=== PATIENT | male | born 1950 | race Caucasian/White ===

== ENCOUNTER 2016-08-08 04:23 | Day surgery (SDC) | payer MEDICARE ==
[2016-08-02 15:55] LABS: HEMATOCRIT 39.1 % (40.0-51.0); HEMOGLOBIN 12.8 g/dL (13.6-17.8)
[2016-08-02 20:35] LABS: BUN (BLOOD UREA NITROGEN) 10 MG/DL (6-23); CALCIUM, SERUM 8.6 MG/DL (8.5-10.4); CHLORIDE, SERUM 105 MMOL/L (96-112); CO2 (CARBON DIOXIDE) 25 MMOL/L (24-34); CREATININE 0.82 MG/DL (0.70-1.30); GFR AFRICAN AMERICAN 106 ML/MIN (>=60); GFR NON AFRICAN AMERICAN 92 ML/MIN (>=60); GLUCOSE, SERUM 89 MG/DL (60-99); POTASSIUM, SERUM 4.1 MMOL/L (3.5-5.3); SODIUM, SERUM 141 MMOL/L (135-148)
--- NOTE | ~2016-08-08 | OP ---
[facility] [address] [place]. [address] NAME: KORI BRUNO NEL : 46 STATUS : [facility]#: [id number] AGE: 65 ADM/REG DATE : 08/08/16 MR#: [id number] REPORT SERV DATE: 08/12/16 DICTATED BY: NOE BUCKLEY II DATE: 08/08/16 REPORT STATUS : Draft TRANSCRIBED BY: MODL DATE: 08/08/16 DATE OF PROCEDURE: 08/08/2016 PREOPERATIVE DIAGNOSES: 1. Lumbar degenerative scoliosis. 2. Low back pain with radiculitis of lower extremities. POSTOPERATIVE DIAGNOSES: 1. Lumbar degenerative scoliosis. 2. Low back pain with radiculitis of lower extremities. PROCEDURES: 1. Placement of percutaneous spinal column stimulator leads x2. 2. Placement of battery generator, spinal column stimulator. SURGEON: Noe Buckley M.D. FLUIDS REPLACED: 1300 mL LR. ESTIMATED BLOOD LOSS: 10 mL. DRAINS: None. COMPLICATIONS: None. ANTIBIOTICS: Preoperatively. IMPLANTS: [employer] spinal column stimulator system. PREOPERATIVE HISTORY: A very friendly 65-year-old gentleman, who has a significant lumbar degeneration and radiculitis. He is not a very good surgical candidate for a large thoracolumbar surgery, he ultimately was sent to pain management. Dr. Velez performed a very successful trial column stimulator. He was then evaluated by us for direct implantation and he wished to proceed. DESCRIPTION OF PROCEDURE: After informed consent was obtained, the patient was brought to the operating room at his request and general anesthesia achieved. He was placed in the prone position, and the back was prepped and draped in a sterile fashion. The paramedian incision was made at the thoracolumbar junction. The fascia was incised and the 17-gauge needle placed into the epidural space at T12-L1 using the loss of resistance technique. The electrode was then placed into the dorsal epidural space and placed to overlie the T8 and T9 vertebral bodies on fluoroscopy. A second lead was then placed in a similar manner using a second needle. Next, the leads were then suture anchored to the fascia. The battery pocket was then developed on the left. This was a subcutaneous pocket development. The battery was then Record [facility] [address] [place] [place]. [address] NAME: KORI BRUNO : 46 STATUS : [facility] PAT#: [id number] AGE: 65 ADM/REG DATE : 08/08/16 MR#: [id number] REPORT SERV DATE: 08/12/16 DICTATED BY: NOE BUCKLEY II DATE: 08/08/16 REPORT STATUS : Draft TRANSCRIBED BY: HARSHAD DATE: 08/08/16 attached to the soft tissue. The system was found to be functional. Irrigation was performed followed by standard closure. The patient was then extubated and transferred to PACU in stable condition. I went to the waiting room to see his family member/friend and she was not available. I then called her cell phone, and it went to voicemail and there was not a voicemail box setup. I then discussed later in the morning with the phase 2 recovery nurse that the patient was stable and comfortable and he was discharged home in a satisfactory condition. JARROD/HARSHAD Noe Buckley II, M.D. / [id number] CC: Franck Oakes II, PA John Everett Blake III, M.D.
[~2016-08-08 04:23] MED LIST: ANOROELLIPTA INH; EFFEXOR XR150 MG PO; MSCONTIN PO; PRIN20 PO; VENTOLIN HFA INH
== END 2016-08-08 11:02 | disposition home or self-care (01) ==
LOC: SDC 04:23
PROVIDERS: Orthopaedic Surgery
PROC: 01HY3MZ Insertion of Neurostimulator Lead into Peripheral Nerve, Percutaneous Approach (ICD-10-PCS; 2016-08-08)
PROC: 0JH70BZ Insertion of Single Array Stimulator Generator into Back Subcutaneous Tissue and Fascia, Open Approach (ICD-10-PCS; principal; 2016-08-08 05:45)
DX: Z45.49 Encounter for adjustment and management of other implanted nervous system device (principal); M41.9 Scoliosis, unspecified; I10 Essential (primary) hypertension; F17.210 Nicotine dependence, cigarettes, uncomplicated; J44.9 Chronic obstructive pulmonary disease, unspecified; G89.29 Other chronic pain; Z85.51 Personal history of malignant neoplasm of bladder; Z90.89 Acquired absence of other organs; D64.9 Anemia, unspecified; F41.9 Anxiety disorder, unspecified; M19.90 Unspecified osteoarthritis, unspecified site; F32.9 Major depressive disorder, single episode, unspecified; Z90.49 Acquired absence of other specified parts of digestive tract; Z79.891 Long term (current) use of opiate analgesic; Z79.899 Other long term (current) drug therapy
CPT/HCPCS: 36415; 80048; 85014; 85018; 93005; C1767; C1778; C1787; J0690; J1030; J2250; J2270; J2405; J2710; J3010; J3370